=== PATIENT | male | born 1970 | race Caucasian/White ===

== ENCOUNTER 2017-06-20 00:02 | Inpatient (IN) | payer OTHER ==
[2017-06-19 02:17] VITALS: BP 132/98
[~2017-06-20] VITALS: Ht 180.3 cm; Wt 131.1 kg
[2017-06-20] MEDS ORDERED: THIAMINE HCL 200 MG/2 ML VIAL IM ONE (00:15)
[2017-06-20] MEDS ORDERED: LOPERAMIDE HCL 2 MG CAPSULE PO PRN ×2 (00:15)
[2017-06-20] MEDS ORDERED: DICYCLOMINE HCL 20 MG TABLET PO PRN (00:15)
[2017-06-20] MEDS ORDERED: diphenhydrAMINE 50 MG CAPSULE PO PRN (00:15)
[2017-06-20] MEDS ORDERED: MIRALAX 17 GM POWD.PACK PO PRN (00:15)
[2017-06-20] MEDS ORDERED: MAG HYDROX/AL HYDROX/SIMETH 30 ML LIQUID UDC PO PRN (00:15)
[2017-06-20] MEDS ORDERED: MAGNESIUM HYDROXIDE 30 ML LIQUID UDC PO PRN (00:15)
[2017-06-20] MEDS ORDERED: ACETAMINOPHEN 325 MG TABLET PO PRN (00:15)
[2017-06-20] MEDS ORDERED: ONDANSETRON 4 MG/2 ML VIAL IM PRN (00:15)
[2017-06-20] MEDS ORDERED: LORAZEPAM 1 MG TABLET PO PRN (00:15)
[2017-06-20] MEDS ORDERED: LORAZEPAM 2 MG/1 ML VIAL IM PRN (00:15)
[2017-06-20 00:54] LABS: BASOPHILS # (AUTO) 0.1 K/uL (0.0-8.0); EOSINOPHILS # (AUTO) 0.4 K/uL (0.0-0.7); EOSINOPHILS % (AUTO) 7.1 % (0.0-7.0); HEMATOCRIT 41.9 % (36.7-47.1); HEMOGLOBIN 14.4 g/dL (12.5-16.3); LYMPHOCYTES # (AUTO) 1.7 K/uL (20.0-40.0); LYMPHOCYTES % (AUTO) 30.9 % (20.5-51.5); MEAN CORPUSCULAR HEMOGLOBIN 29.9 uug (23.8-33.4); MEAN CORPUSCULAR HGB CONC 34 g/dL (32.5-36.3); MEAN CORPUSCULAR VOLUME 87.2 fL (73.0-96.2); MONOCYTES # (AUTO) 0.5 K/uL (2.0-10.0); MONOCYTES % (AUTO) 8.9 % (0.0-11.0); NEUTROPHILS # (AUTO) 2.8 K/uL (1.8-8.9); NEUTROPHILS % (AUTO) 52.1 % (38.5-71.5); PLATELET COUNT (AUTO) 185 K/uL (152-348); RED BLOOD CELL COUNT(AUTO) 4.81 MIL/uL (4.06-5.63); WHITE BLOOD COUNT (AUTO) 5.4 K/uL (3.6-10.2)
[2017-06-20] MEDS ORDERED: LORAZEPAM 1 MG TABLET PO ONE (01:00)
[2017-06-20 01:13] LABS: *AMPHETAMINE, URINE NEGATIVE (NEGATIVE); *BARBITURATE, URINE NEGATIVE (NEGATIVE); *CANNABINOID, URINE NEGATIVE (NEGATIVE); *COCCAINE, URINE NEGATIVE (NEGATIVE); *OPIATE, URINE NEGATIVE (NEGATIVE); *PHENCYCLIDINE SCREEN,URINE NEGATIVE (NEGATIVE)
[2017-06-20] MEDS: BUPRENORPHINE HCL 2 MG TAB.SUBL SL PRN ×3 (01:16→11:25)
[2017-06-20] MEDS: ONDANSETRON ODT 4 MG TAB.RAPDIS SL PRN (01:17)
[2017-06-20] MEDS: CLONIDINE HCL 0.1 MG TABLET PO PRN (01:17)
[2017-06-20 01:19] LABS: ETHANOL < 3 MG/DL (0-0)
[2017-06-20] MEDS: METHOCARBAMOL 750 MG TABLET PO PRN ×2 (01:24→13:10)
[2017-06-20] MEDS ORDERED: LORAZEPAM 1 MG TABLET ONE ×3 (01:29→05:45)
[2017-06-20] MEDS ORDERED: CLONIDINE HCL 0.1 MG TABLET ONE (01:29)
[2017-06-20] MEDS ORDERED: THIAMINE HCL 200 MG/2 ML VIAL ONE (01:30)
[2017-06-20] MEDS ORDERED: DICYCLOMINE HCL 20 MG TABLET ONE (01:30)
[2017-06-20] MEDS ORDERED: METHOCARBAMOL 750 MG TABLET ONE (01:31)
[2017-06-20] MEDS ORDERED: ONDANSETRON ODT 4 MG TAB.RAPDIS ONE (01:31)
[2017-06-20 01:32] LABS: ALANINE AMINOTRANSFERASE 15 U/L (16-63); ALKALINE PHOSPHATASE 87 U/L (50-136); ASPARTATE AMINOTRANSFERASE 21 U/L (15-37); BILIRUBIN,TOTAL 0.3 mg/dL (0.2-1.0); CARBON DIOXIDE 29 mmol/L (21-32); CHLORIDE 103 mmol/L (98-107); CREATININE 0.9 mg/dL (0.6-1.3); GLUCOSE 95 mg/dL (74-106); MAGNESIUM 1.9 mg/dL (1.8-2.4); POTASSIUM 4.2 mmol/L (3.5-5.1); TOTAL PROTEIN, SERUM 7.4 g/dL (6.4-8.2); UREA NITROGEN, BLOOD 18 mg/dL (7-18)
[2017-06-20] MEDS: IBUPROFEN 600 MG TABLET PO PRN (01:32)
[2017-06-20 01:42] LABS: THYROID STIMULATING HORMONE 3.809 mIU/mL (0.358-3.740)
[2017-06-20] MEDS ORDERED: IBUPROFEN 600 MG TABLET ONE (01:47)
[2017-06-20] MEDS: LORAZEPAM 1 MG TABLET PO PRN ×3 (03:17→11:25)
[2017-06-20 04:00] VITALS: BP 129/95
[2017-06-20] MEDS ORDERED: METH-406 PO (04:58)
[2017-06-20] MEDS ORDERED: BUPR1FIL3 SL (04:58)
[2017-06-20] MEDS ORDERED: ESCI20TA PO (04:58)
[2017-06-20] MEDS ORDERED: QUET400T PO (04:58)
[2017-06-20] MEDS ORDERED: CLON0.1T PO (04:58)
[2017-06-20] MEDS ORDERED: IBUP-1957 PO (04:58)
[2017-06-20] MEDS ORDERED: GABA600T2 PO (04:58)
[2017-06-20] MEDS ORDERED: BUPRENORPHINE HCL 2 MG TAB.SUBL SL ONE (05:44)
[2017-06-20 08:00] VITALS: BP 125/63
[2017-06-20] MEDS: THIAMINE HCL 100 MG TABLET PO SCH (08:26)
[2017-06-20] MEDS: LORAZEPAM 1 MG TABLET PO SCH ×4 (08:26→21:02)
[2017-06-20] MEDS: BUPRENORPHINE HCL 2 MG TAB.SUBL SL SCH ×4 (08:29→21:02)
[2017-06-20] MEDS: FOLIC ACID 1 MG TABLET PO SCH (08:30)
[2017-06-20] MEDS: MULTIVITAMINS,THERAPEUTIC TABLET PO SCH (08:30)
[2017-06-20 12:00] VITALS: BP 127/69
[2017-06-20] MEDS: GABAPENTIN 300 MG CAPSULE PO SCH ×2 (15:33→21:02)
[2017-06-20 20:26] VITALS: BP 118/78
[2017-06-20] MEDS ORDERED: Medication Not On Formulary EA (Quetiapine Fumarate (Seroquel) 400 MG) PO SCH (21:00)
[2017-06-20] MEDS: QUETIAPINE FUMARATE 200 MG TABLET PO SCH (21:02)
[2017-06-21 00:18] VITALS: BP 132/79
[2017-06-21 04:14] VITALS: BP 128/74
[2017-06-21 08:00] VITALS: BP 118/79
[2017-06-21] MEDS: GABAPENTIN 300 MG CAPSULE PO SCH ×3 (08:29→21:26)
[2017-06-21] MEDS: LORAZEPAM 1 MG TABLET PO SCH ×3 (08:29→21:26)
[2017-06-21] MEDS: FOLIC ACID 1 MG TABLET PO SCH (08:29)
[2017-06-21] MEDS: THIAMINE HCL 100 MG TABLET PO SCH (08:29)
[2017-06-21] MEDS: BUPRENORPHINE HCL 2 MG TAB.SUBL SL SCH ×3 (08:29→21:26)
[2017-06-21] MEDS: MULTIVITAMINS,THERAPEUTIC TABLET PO SCH (08:29)
[2017-06-21] MEDS: METHOCARBAMOL 750 MG TABLET PO PRN (08:37)
[2017-06-21] MEDS: ONDANSETRON ODT 4 MG TAB.RAPDIS SL PRN (08:37)
[2017-06-21] MEDS: IBUPROFEN 600 MG TABLET PO PRN (08:37)
[2017-06-21] MEDS ORDERED: ESCITALOPRAM OXALATE 10 MG TABLET PO SCH (09:00)
[2017-06-21] MEDS ORDERED: TUBERCULIN,PURIF.PROT.DERIV. 5 TU/0.1 ML TEST ID ONE (09:00)
[2017-06-21] MEDS: CLONIDINE HCL 0.1 MG TABLET PO PRN ×2 (09:13→14:25)
[2017-06-21 12:00] VITALS: BP_SYST 131; BP_DIAS 108; BP_DIAS 98
[2017-06-21] MEDS ORDERED: PHENOBARBITAL 60 MG TABLET PO ONE (12:15)
[2017-06-21] MEDS ORDERED: KETOROLAC TROMETHAMINE 30 MG INJ IM PRN (12:15)
[2017-06-21 13:07] LABS: HEPATITIS B SURFACE AG Negative (Negative)
[2017-06-21] MEDS: BACLOFEN 10 MG TABLET PO SCH ×2 (14:20→21:26)
[2017-06-21 16:00] VITALS: BP 137/108
[2017-06-21 20:00] VITALS: BP 113/73
[2017-06-21] MEDS: QUETIAPINE FUMARATE 200 MG TABLET PO SCH (21:26)
[2017-06-22 08:00] VITALS: BP 156/107
[2017-06-22] MEDS ORDERED: LORAZEPAM 1 MG TABLET PO SCH ×2 (09:00→21:00)
[2017-06-22] MEDS ORDERED: BUPRENORPHINE HCL 2 MG TAB.SUBL SL SCH (09:00)
[2017-06-22] MEDS: MULTIVITAMINS,THERAPEUTIC TABLET PO SCH (09:47)
[2017-06-22] MEDS: GABAPENTIN 300 MG CAPSULE PO SCH ×3 (09:47→21:17)
[2017-06-22] MEDS: THIAMINE HCL 100 MG TABLET PO SCH (09:48)
[2017-06-22] MEDS: BACLOFEN 10 MG TABLET PO SCH (09:48)
[2017-06-22] MEDS: FOLIC ACID 1 MG TABLET PO SCH (09:48)
[2017-06-22] MEDS: ESCITALOPRAM OXALATE 10 MG TABLET PO SCH (09:48)
[2017-06-22] MEDS: LORAZEPAM 1 MG TABLET PO SCH ×2 (12:58→17:18)
[2017-06-22 13:00] VITALS: BP 133/72
[2017-06-22 16:00] VITALS: BP 130/61
[2017-06-22] MEDS: BACLOFEN 20 MG TABLET PO SCH ×2 (16:26→21:18)
[2017-06-22] MEDS: BUPRENORPHINE HCL 2 MG TAB.SUBL SL SCH ×2 (16:27→21:19)
[2017-06-22 20:00] VITALS: BP 137/68
[2017-06-22] MEDS: QUETIAPINE FUMARATE 200 MG TABLET PO SCH (21:18)
[2017-06-22] MEDS: CLONIDINE HCL 0.1 MG TABLET PO PRN (22:09)
[2017-06-23 04:00] VITALS: BP 129/70
[2017-06-23 08:00] VITALS: BP 118/72
[2017-06-23] MEDS: THIAMINE HCL 100 MG TABLET PO SCH (08:51)
[2017-06-23] MEDS: GABAPENTIN 300 MG CAPSULE PO SCH ×3 (08:51→20:31)
[2017-06-23] MEDS: BACLOFEN 20 MG TABLET PO SCH ×3 (08:51→20:29)
[2017-06-23] MEDS: LORAZEPAM 1 MG TABLET PO SCH ×3 (08:52→20:31)
[2017-06-23] MEDS: MULTIVITAMINS,THERAPEUTIC TABLET PO SCH (08:52)
[2017-06-23] MEDS: FOLIC ACID 1 MG TABLET PO SCH (08:52)
[2017-06-23] MEDS: ESCITALOPRAM OXALATE 10 MG TABLET PO SCH (08:52)
[2017-06-23] MEDS: BUPRENORPHINE HCL 2 MG TAB.SUBL SL SCH ×3 (08:55→20:33)
[2017-06-23] MEDS ORDERED: BUPRENORPHINE HCL 2 MG TAB.SUBL SL ONE (11:00)
[2017-06-23 11:57] LABS: POTASSIUM 5.1 mmol/L (3.5-5.1)
[2017-06-23] MEDS ORDERED: LORAZEPAM 1 MG TABLET PO ONE (12:30)
[2017-06-23] MEDS: HYDROXYZINE PAMOATE 25 MG CAPSULE PO PRN (12:33)
[2017-06-23 12:51] LABS: THYROID STIMULATING HORMONE 1.75 mIU/mL (0.358-3.740)
[2017-06-23 13:39] VITALS: BP 118/72
[2017-06-23] MEDS ORDERED: NAPROXEN 500 MG TABLET PO ONE (14:00)
[2017-06-23] MEDS: LIDOCAINE 5% PATCH TD SCH (14:27)
[2017-06-23 16:00] VITALS: BP 157/108
[2017-06-23] MEDS: METHOCARBAMOL 750 MG TABLET PO PRN (17:57)
[2017-06-23 20:00] VITALS: BP 147/100
[2017-06-23] MEDS: NAPROXEN 500 MG TABLET PO SCH (20:29)
[2017-06-23] MEDS: DOCUSATE SODIUM 100 MG CAPSULE PO SCH (20:30)
[2017-06-23] MEDS: QUETIAPINE FUMARATE 200 MG TABLET PO SCH (20:30)
[2017-06-23] MEDS: CLONIDINE HCL 0.1 MG TABLET PO PRN (20:32)
[2017-06-23] MEDS: ONDANSETRON ODT 4 MG TAB.RAPDIS SL PRN (20:33)
[2017-06-23 21:00] VITALS: BP 132/83
[2017-06-24] VITALS: BP 130/85
[2017-06-24 08:00] VITALS: BP 130/63
[2017-06-24] MEDS ORDERED: BUPRENORPHINE HCL 2 MG TAB.SUBL SL SCH (09:00)
[2017-06-24] MEDS ORDERED: LORAZEPAM 1 MG TABLET PO SCH (09:00)
[2017-06-24] MEDS: GABAPENTIN 300 MG CAPSULE PO SCH ×4 (09:38→20:32)
[2017-06-24] MEDS: FOLIC ACID 1 MG TABLET PO SCH (09:38)
[2017-06-24] MEDS: MULTIVITAMINS,THERAPEUTIC TABLET PO SCH (09:38)
[2017-06-24] MEDS: THIAMINE HCL 100 MG TABLET PO SCH (09:38)
[2017-06-24] MEDS: BACLOFEN 20 MG TABLET PO SCH ×3 (09:38→20:31)
[2017-06-24] MEDS: ESCITALOPRAM OXALATE 10 MG TABLET PO SCH (09:38)
[2017-06-24] MEDS: NAPROXEN 500 MG TABLET PO SCH ×2 (09:38→20:31)
[2017-06-24] MEDS: BUPRENORPHINE HCL 2 MG TAB.SUBL SL SCH ×4 (09:38→16:12)
[2017-06-24] MEDS: LIDOCAINE 5% PATCH TD SCH (09:39)
[2017-06-24] MEDS: LORAZEPAM 1 MG TABLET PO SCH ×3 (09:39→20:31)
[2017-06-24] MEDS: FAMOTIDINE 20 MG TABLET PO SCH (09:39)
[2017-06-24] MEDS ORDERED: METHYL SALICYLATE/MENTHOL CREAM 28 GM TUBE TOP PRN (11:45)
[2017-06-24 12:28] VITALS: BP 111/74
[2017-06-24] MEDS: ACETAMINOPHEN 325 MG TABLET PO SCH ×2 (14:01→20:31)
[2017-06-24 16:00] VITALS: BP_SYST 132; BP_SYST 144; BP_DIAS 104; BP_DIAS 82
[2017-06-24] MEDS: HYDROXYZINE PAMOATE 25 MG CAPSULE PO PRN (16:12)
[2017-06-24] MEDS: CLONIDINE HCL 0.1 MG TABLET PO PRN (16:14)
[2017-06-24] MEDS ORDERED: LORAZEPAM 1 MG TABLET PO ONE (16:30)
[2017-06-24 20:09] VITALS: BP 133/59
[2017-06-24] MEDS: DOCUSATE SODIUM 100 MG CAPSULE PO SCH (20:31)
[2017-06-24] MEDS: QUETIAPINE FUMARATE 200 MG TABLET PO SCH (20:31)
[2017-06-25 00:10] VITALS: BP 127/64
[2017-06-25 04:22] VITALS: BP 129/68
[2017-06-25] MEDS ORDERED: BUPRENORPHINE HCL 2 MG TAB.SUBL SL SCH (09:00)
[2017-06-25] MEDS ORDERED: LORAZEPAM 1 MG TABLET PO SCH ×2 (09:00)
[2017-06-25] MEDS: LIDOCAINE 5% PATCH TD SCH (09:00)
[2017-06-25] MEDS: MULTIVITAMINS,THERAPEUTIC TABLET PO SCH (10:29)
[2017-06-25] MEDS: BUPRENORPHINE HCL 2 MG TAB.SUBL SL SCH ×2 (10:29→20:30)
[2017-06-25] MEDS: FAMOTIDINE 20 MG TABLET PO SCH (10:29)
[2017-06-25] MEDS: FOLIC ACID 1 MG TABLET PO SCH (10:29)
[2017-06-25] MEDS: ESCITALOPRAM OXALATE 10 MG TABLET PO SCH (10:29)
[2017-06-25] MEDS: NAPROXEN 500 MG TABLET PO SCH ×2 (10:29→20:29)
[2017-06-25 10:30] VITALS: BP 140/94
[2017-06-25] MEDS: GABAPENTIN 300 MG CAPSULE PO SCH ×4 (10:30→20:29)
[2017-06-25] MEDS: THIAMINE HCL 100 MG TABLET PO SCH (10:30)
[2017-06-25] MEDS: BACLOFEN 20 MG TABLET PO SCH ×4 (10:30→20:29)
[2017-06-25] MEDS: ACETAMINOPHEN 325 MG TABLET PO SCH ×3 (10:30→20:29)
[2017-06-25] MEDS ORDERED: BUPRENORPHINE HCL 2 MG TAB.SUBL SL ONE (11:30)
[2017-06-25 12:00] VITALS: BP 141/94
[2017-06-25] MEDS: CLONIDINE HCL 0.1 MG TABLET PO PRN ×2 (13:05→20:46)
[2017-06-25] MEDS: HYDROXYZINE PAMOATE 25 MG CAPSULE PO PRN (15:29)
[2017-06-25 16:00] VITALS: BP 135/92
[2017-06-25] MEDS: LORAZEPAM 1 MG TABLET PO SCH ×2 (17:24→20:29)
[2017-06-25] MEDS: ONDANSETRON ODT 4 MG TAB.RAPDIS SL PRN (17:34)
[2017-06-25 20:00] VITALS: BP 159/90
[2017-06-25] MEDS: DOCUSATE SODIUM 100 MG CAPSULE PO SCH (20:28)
[2017-06-25] MEDS: QUETIAPINE FUMARATE 200 MG TABLET PO SCH (20:28)
[2017-06-25] MEDS: METHOCARBAMOL 750 MG TABLET PO PRN (20:47)
[2017-06-26] VITALS: BP 130/98
[2017-06-26 08:50] VITALS: BP 120/69
[2017-06-26] MEDS: ACETAMINOPHEN 325 MG TABLET PO SCH ×3 (08:56→21:45)
[2017-06-26] MEDS: ESCITALOPRAM OXALATE 10 MG TABLET PO SCH (08:56)
[2017-06-26] MEDS: LIDOCAINE 5% PATCH TD SCH (08:56)
[2017-06-26] MEDS: NAPROXEN 500 MG TABLET PO SCH ×2 (08:56→21:45)
[2017-06-26] MEDS: MULTIVITAMINS,THERAPEUTIC TABLET PO SCH (08:57)
[2017-06-26] MEDS: BACLOFEN 20 MG TABLET PO SCH ×4 (08:57→21:45)
[2017-06-26] MEDS: GABAPENTIN 300 MG CAPSULE PO SCH ×4 (08:57→21:45)
[2017-06-26] MEDS: FAMOTIDINE 20 MG TABLET PO SCH (08:57)
[2017-06-26] MEDS: FOLIC ACID 1 MG TABLET PO SCH (08:57)
[2017-06-26] MEDS ORDERED: LORAZEPAM 1 MG TABLET PO SCH ×2 (09:00→21:00)
[2017-06-26] MEDS ORDERED: BUPRENORPHINE HCL 2 MG TAB.SUBL SL SCH ×2 (09:00→21:00)
[2017-06-26] MEDS: THIAMINE HCL 100 MG TABLET PO SCH (09:08)
[2017-06-26 12:27] VITALS: BP 120/60
[2017-06-26] MEDS: CLONIDINE HCL 0.1 MG TABLET PO PRN (15:31)
[2017-06-26] MEDS ORDERED: DICY20TA28 PO (15:44)
[2017-06-26] MEDS ORDERED: LIDO30AD10 TD (15:44)
[2017-06-26] MEDS ORDERED: DIPH50CA37 PO (15:44)
[2017-06-26] MEDS ORDERED: FAMO20TA8 PO (15:44)
[2017-06-26] MEDS ORDERED: ACET325T53 PO (15:44)
[2017-06-26] MEDS ORDERED: GABA-534 PO (15:44)
[2017-06-26] MEDS ORDERED: HYDR-3895 PO (15:44)
[2017-06-26] MEDS ORDERED: NAPR500T4 PO (15:44)
[2017-06-26] MEDS ORDERED: QUET200T PO (15:44)
[2017-06-26] MEDS ORDERED: BACL20TA PO (15:44)
[2017-06-26] MEDS ORDERED: ESCI10TA PO (15:44)
[2017-06-26] MEDS ORDERED: CLON0.1T14 PO (15:44)
[2017-06-26 16:57] VITALS: BP 134/96
[2017-06-26] MEDS: HYDROXYZINE PAMOATE 25 MG CAPSULE PO PRN (17:45)
[2017-06-26] MEDS: METHOCARBAMOL 750 MG TABLET PO PRN (17:46)
[2017-06-26 20:00] VITALS: BP 108/57
[2017-06-26] MEDS: DOCUSATE SODIUM 100 MG CAPSULE PO SCH (21:44)
[2017-06-26] MEDS: QUETIAPINE FUMARATE 200 MG TABLET PO SCH (21:45)
[2017-06-27 08:00] VITALS: BP 143/90
[2017-06-27] MEDS: LIDOCAINE 5% PATCH TD SCH ×2 (09:00→09:43)
[2017-06-27] MEDS ORDERED: BUPRENORPHINE HCL 2 MG TAB.SUBL SL SCH (09:00)
[2017-06-27] MEDS ORDERED: LORAZEPAM 1 MG TABLET PO SCH (09:00)
[2017-06-27] MEDS: FAMOTIDINE 20 MG TABLET PO SCH (09:39)
[2017-06-27] MEDS: FOLIC ACID 1 MG TABLET PO SCH (09:39)
[2017-06-27] MEDS: MULTIVITAMINS,THERAPEUTIC TABLET PO SCH (09:39)
[2017-06-27] MEDS: ESCITALOPRAM OXALATE 10 MG TABLET PO SCH (09:39)
[2017-06-27] MEDS: BACLOFEN 20 MG TABLET PO SCH ×4 (09:40→20:05)
[2017-06-27] MEDS: THIAMINE HCL 100 MG TABLET PO SCH (09:40)
[2017-06-27] MEDS: GABAPENTIN 300 MG CAPSULE PO SCH ×4 (09:41→20:05)
[2017-06-27] MEDS: ACETAMINOPHEN 325 MG TABLET PO SCH ×3 (09:42→20:05)
[2017-06-27] MEDS: NAPROXEN 500 MG TABLET PO SCH ×2 (09:42→20:05)
[2017-06-27] MEDS: CLONIDINE HCL 0.1 MG TABLET PO PRN ×2 (09:50→13:58)
[2017-06-27] MEDS: HYDROXYZINE PAMOATE 25 MG CAPSULE PO PRN (09:50)
[2017-06-27] MEDS: METHOCARBAMOL 750 MG TABLET PO PRN ×2 (09:50→20:05)
[2017-06-27 12:00] VITALS: BP 137/101
[2017-06-27 16:00] VITALS: BP 122/85
[2017-06-27 20:00] VITALS: BP 145/89
[2017-06-27] MEDS: DOCUSATE SODIUM 100 MG CAPSULE PO SCH (20:05)
[2017-06-27] MEDS: QUETIAPINE FUMARATE 200 MG TABLET PO SCH (21:28)
[2017-06-28] VITALS: BP 133/67
[2017-06-28 08:00] VITALS: BP 138/90
[2017-06-28] MEDS: ACETAMINOPHEN 325 MG TABLET PO SCH (09:07)
[2017-06-28] MEDS: NAPROXEN 500 MG TABLET PO SCH (09:07)
[2017-06-28] MEDS: THIAMINE HCL 100 MG TABLET PO SCH (09:07)
[2017-06-28] MEDS: FAMOTIDINE 20 MG TABLET PO SCH (09:07)
[2017-06-28] MEDS: MULTIVITAMINS,THERAPEUTIC TABLET PO SCH (09:07)
[2017-06-28] MEDS: GABAPENTIN 300 MG CAPSULE PO SCH (09:07)
[2017-06-28] MEDS: BACLOFEN 20 MG TABLET PO SCH (09:08)
[2017-06-28] MEDS: ESCITALOPRAM OXALATE 10 MG TABLET PO SCH (09:08)
[2017-06-28] MEDS: FOLIC ACID 1 MG TABLET PO SCH (09:08)
[2017-06-28] MEDS: LIDOCAINE 5% PATCH TD SCH (09:08)
== END 2017-06-28 10:49 | DRG 895 ==
LOC: SRC 00:02
PROVIDERS: ADMIT Internal Medicine; ATTEND Internal Medicine
PROC: HZ2ZZZZ Detoxification Services for Substance Abuse Treatment (ICD-10-PCS; principal; 2017-06-20)
PROC: HZ41ZZZ Group Counseling for Substance Abuse Treatment, Behavioral (ICD-10-PCS; 2017-06-23)
PROC: HZ31ZZZ Individual Counseling for Substance Abuse Treatment, Behavioral (ICD-10-PCS; 2017-06-26)
DX: F10.232 Alcohol dependence with withdrawal with perceptual disturbance (principal); E87.3 Alkalosis; I15.9 Secondary hypertension, unspecified; F33.1 Major depressive disorder, recurrent, moderate; G62.9 Polyneuropathy, unspecified; Z68.41 Body mass index [BMI] 40.0-44.9, adult; F11.23 Opioid dependence with withdrawal; Y90.0 Blood alcohol level of less than 20 mg/100 ml; Z59.1 Inadequate housing; G89.29 Other chronic pain; M54.5 Low back pain; F41.9 Anxiety disorder, unspecified; F17.210 Nicotine dependence, cigarettes, uncomplicated; Z79.899 Other long term (current) drug therapy; E86.0 Dehydration; E66.9 Obesity, unspecified; E07.81 Sick-euthyroid syndrome; F13.90 Sedative, hypnotic, or anxiolytic use, unspecified, uncomplicated
CPT/HCPCS: 36415; 70030-TC; 80307; 80346; 83735; 84443; 85025; 86580; 86592; 86705; 86803; 87340; 87806; 97116; 97530; A4663; G0480; J1885; J3411; J8499; Q0162